=== PATIENT | male | born 1995 | race Two or more races ===

== ENCOUNTER 2022-12-10 17:02 | Emergency (ER) | payer MEDICAID, OTHER ==
[~2022-12-10] VITALS: Ht 172.7 cm; Wt 70.3 kg
--- NOTE | 2022-12-10 17:15 | NUR ---
RECEIVED PT 27 YRS MALE CAME ON CASTE WITH WRIST HAND CAFF
[2022-12-10] MEDS ORDERED: TDAP [DIPH/PERTUSSIS/TET] 0.5 ML VIAL IM ONE ×2 (17:30→18:11)
--- NOTE | 2022-12-10 17:30 | NUR ---
SEEN BY DR. MAYER
--- NOTE | 2022-12-10 17:35 | NUR ---
BE [facility] FROM ([facility] )
--- NOTE | 2022-12-10 18:00 | NUR ---
TD SHAT GIVEN TO PT
--- NOTE | 2022-12-10 18:44 | NUR ---
D/C FOR OK TO BOOK AND CLEAR BY PROVIDER STE[place]
--- NOTE | 2022-12-10 18:45 | NUR ---
D/C INSTRACTION GIVEN OFFICERS
[2022-12-10 18:49] VITALS: BP 125/73
== END 2022-12-10 18:51 ==
LOC: ER 17:13
DX: S01.112A Laceration without foreign body of left eyelid and periocular area, initial encounter (principal); S33.5XXA Sprain of ligaments of lumbar spine, initial encounter; G89.29 Other chronic pain; F17.200 Nicotine dependence, unspecified, uncomplicated; Z86.69 Personal history of other diseases of the nervous system and sense organs; Z91.013 Allergy to seafood; Y04.2XXA Assault by strike against or bumped into by another person, initial encounter; Y93.89 Activity, other specified; Y92.89 Other specified places as the place of occurrence of the external cause; Y99.8 Other external cause status
CPT/HCPCS: 72110-TC; 90715

== ENCOUNTER 2024-07-29 08:54 | Emergency (ER) | payer OTHER ==
[~2024-07-29] VITALS: Ht 165.1 cm; Wt 69.4 kg
[2024-07-29 10:00] LABS: BASOPHILS % (AUTO) 0.2 % (0.0-2.0); EOSINOPHILS # (AUTO) 0.1 K/uL (0.0-0.7); EOSINOPHILS % (AUTO) 0.5 % (0.0-6.0); HEMATOCRIT 41 % (39-51); HEMOGLOBIN 13.7 g/dL (13.5-17.5); LYMPHOCYTES # (AUTO) 0.9 K/uL (0.8-4.8); LYMPHOCYTES % (AUTO) 6.6 % (20.0-44.0); MEAN CORPUSCULAR HEMOGLOBIN 33 PG (26.0-33.0); MEAN CORPUSCULAR HGB CONC 34 g/dl (31.0-36.0); MEAN CORPUSCULAR VOLUME 96 fL (80-96); MONOCYTES # (AUTO) 1.3 K/uL (0.1-1.30); MONOCYTES % (AUTO) 9.6 % (2.0-12.0); NEUTROPHILS # (AUTO) 11.7 K/uL (1.8-8.9); NEUTROPHILS % (AUTO) 83.1 % (43.0-81.0); PLATELET COUNT (AUTO) 289 K/uL (150-450); RED BLOOD CELL COUNT(AUTO) 4.23 MIL/uL (4.5-6.0); RED CELL DISTRIBUTION WIDTH 13.3 % (11.5-15.0)
[2024-07-29 10:16] LABS: CALCIUM, SERUM 9.3 mg/dL (8.5-10.1); CARBON DIOXIDE 32 mmol/L (21-32); CHLORIDE 102 mmol/L (98-107); CREATININE 0.9 mg/dL (0.6-1.3); GLUCOSE 65 mg/dL (74-106); POTASSIUM 3.3 mmol/L (3.5-5.1); SODIUM SERUM 142 mmol/L (136-145); UREA NITROGEN, BLOOD 16 mg/dL (7-18)
[2024-07-29 10:20] LABS: ACETAMINOPHEN <10 ug/ml (10-30); ALANINE AMINOTRANSFERASE 17 U/L (12-78); ALCOHOL, BLOOD < 3 mg/dL (0-10); ALKALINE PHOSPHATASE 66 U/L (46-116); ASPARTATE AMINOTRANSFERASE 24 U/L (15-37); BILIRUBIN,DIRECT 0.2 mg/dL (0.0-0.2); BILIRUBIN,TOTAL 0.6 mg/dL (0.2-1.0); SALICYLATE 0.6 mg/dL (2.8-20.0); TOTAL PROTEIN, SERUM 8.2 g/dL (6.4-8.2)
[2024-07-29 14:01] VITALS: BP 124/68; TEMP 98.5; O2SAT 100
== END 2024-07-29 12:45 ==
LOC: ER 09:06
DX: F19.10 Other psychoactive substance abuse, uncomplicated (principal); R73.9 Hyperglycemia, unspecified; G40.909 Epilepsy, unspecified, not intractable, without status epilepticus; Z02.89 Encounter for other administrative examinations; Z65.3 Problems related to other legal circumstances
CPT/HCPCS: 36415; 70450-TC; 80048-TC; 80076-TC; 82962-TC; 85025-TC; G0480